=== PATIENT | female | born 1965 | race Caucasian/White ===

== ENCOUNTER 2018-02-23 06:38 | Day surgery (SDC) | payer BC ==
[~2018-02-23 06:38] MED LIST: LACTATED RINGER'S 1,000 ML IV
[2018-02-23] MEDS ORDERED: FENTAnyl 50 MCG/ML VIAL IV ×3 (08:00)
[2018-02-23] MEDS ORDERED: ONDANSETRON 4 MG INJ IV (08:00)
[2018-02-23] MEDS ORDERED: HYDROmorphONE (0.2 MG/ML) 10ML SYG IV ×3 (08:00)
[2018-02-23] MEDS ORDERED: DIPHENHYDRAMINE 50 MG INJ IV (08:00)
[2018-02-23] MEDS ORDERED: METOCLOPRAMIDE 10 MG INJ IV (08:00)
[2018-02-23] MEDS ORDERED: MEPERIDINE 25 MG INJ IV (08:00)
[2018-02-23] MEDS ORDERED: MIDAZOLAM 1 MG/ML 2 ML INJ IV (08:00)
[2018-02-23] MEDS ORDERED: SILVER NITRATE SWAB (08:09)
[2018-02-23] MEDS ORDERED: PROPOFOL 20 ML (08:12)
[2018-02-23] MEDS ORDERED: LIDOCAINE 2% (SDV) 5 ML INJ (08:12)
[2018-02-23] MEDS ORDERED: HYDROCORTISONE 100 MG INJ (08:12)
[2018-02-23] MEDS ORDERED: MEPERIDINE 100 MG INJ (08:12)
[2018-02-23] MEDS ORDERED: METOCLOPRAMIDE 10 MG INJ (09:10)
[2018-02-23] MEDS ORDERED: ONDANSETRON 4 MG INJ (09:10)
== END 2018-02-23 11:30 | disposition home or self-care (01) ==
LOC: SDS 06:38
DX: N92.0 Excessive and frequent menstruation with regular cycle (principal); N84.0 Polyp of corpus uteri; I10 Essential (primary) hypertension
CPT/HCPCS: 58558